=== PATIENT | male | born 1950 | race Caucasian/White ===

== ENCOUNTER 2021-03-08 11:26 | Observation (INO) | payer OTHER ==
[~2021-03-08] VITALS: Ht 175.3 cm; Wt 98.6 kg
[~2021-03-08 11:26] MED LIST: ALBU4 PO; ALBU90OI INH; ASCORBIC ACID PO; ATEN25 PO; ATOR20 PO; CYAN500 PO; DOCU100 PO; FERSU220EL PO; Hytrin2 MG PO; LISI5 PO; MULTI-DAY PLUS1 EAC1; PANT40 PO; TIOT18 INH
[2021-03-08] MEDS ORDERED: AMLO5 (11:37)
[2021-03-08] MEDS ORDERED: ATEN50 PO (12:42)
[2021-03-08] MEDS ORDERED: ATORVASTATIN CA20 MG PO (12:42)
[2021-03-08] MEDS ORDERED: AMLODIPINE BESYL5 MG PO (12:42)
[2021-03-08] MEDS ORDERED: Hytrin2 MG PO (12:42)
[2021-03-08] MEDS ORDERED: ZESTRIL40 M1 PO (12:42)
[2021-03-08 12:48] LABS: BASOPHILS ABSOLUTE AUTO 0.02 K/mm3 (0.00-0.23); BASOPHILS PERCENT AUTO 0 % (0-2); EOSINOPHILS PERCENT AUTO 0 % (0-6); Hematocrit 44.2 % (37.0-53.0); Hemoglobin 14.6 g/dL (13.5-17.5); IMMATURE GRAN ABSOLUTE AUTO 0.03 K/mm3 (0.00-0.10); IMMATURE GRAN PERCENT AUTO 0 % (0-1); LYMPHOCYTES ABSOLUTE AUTO 0.81 K/mm3 (0.84-5.20); LYMPHOCYTES PERCENT AUTO 9 % (21-46); MONOCYTES ABSOLUTE AUTO 0.83 K/mm3 (0.16-1.47); MONOCYTES PERCENT AUTO 9 % (4-13); Mean Corpuscular Volume 91 fL (80-100); Mean Platelet Volume 10.8 fL (9.1-12.4); NEUTROPHILS ABSOLUTE AUTO 7.84 K/mm3 (1.96-9.15); NEUTROPHILS PERCENT AUTO 82 % (41-73); Platelet Count 177 K/mm3 (150-400); RDW Standard Deviation 47.1 fL (35.1-46.3); Red Blood Cell Count 4.87 M/mm3 (4.30-5.90); White Blood Cell Count 9.53 K/mm3 (4.00-11.30)
[2021-03-08 13:10] LABS: Alanine Aminotransfer (ALT/SGP 33 U/L (12-78); Albumin, Blood 3.5 g/dL (3.4-5.0); Albumin/Globulin Ratio 1.1 (0.8-1.8); Alk Phos 92 U/L (50-136); Anion Gap 5 mmol/L (6-16); Aspartate Aminotrans (AST/SGOT 19 U/L (12-37); Bilirubin, Total 0.7 mg/dL (0.1-1.0); Blood Urea Nitrogen 20 mg/dL (8-24); CO2, Blood 27 mmol/L (21-32); Chloride, Blood 109 mmol/L (98-108); Creatinine, Blood 1.25 mg/dL (0.60-1.20); Globulin, Blood 3.3 g/dL (2.2-4.0); Glomerular Filtration Rate >60 (60-); Glucose, Blood 121 mg/dL (70-99); Potassium, Blood 3.9 mmol/L (3.5-5.5); Sodium, Blood 141 mmol/L (136-145); Total Protein, Blood 6.8 g/dL (6.4-8.2)
[2021-03-08] MEDS ORDERED: ALBU90OI INH (15:51)
[2021-03-08] MEDS ORDERED: DOCU100 PO (15:53)
[2021-03-08] MEDS ORDERED: ASPI81CH PO (15:53)
[2021-03-08] MEDS ORDERED: PANT40 PO (15:53)
--- NOTE | 2021-03-08 18:20 | NUR ---
PT ADMITTED FROM ER, [facility].HE IS ALERT AND ORIENTED AND ABLE TO EXPRESS NEEDS. HE HAS BEEN AMBULATING AROUND HALLS . HAD EPISODE OF NAUSEA AND VOMITTED BUT EXPRESSED RELIEF SHORTLY AFTER. NO EPISODES SINCE. HE IS FRIENDLY AND COMPLIANT WITH CARES. CALL LIGHT WITHIN REACH.
--- NOTE | 2021-03-09 05:00 | NUR ---
SHIFT SUMMARY PT HAD AN UNEVENTFUL NIGHT. SLEPT THROUGH MOST OF THE NIGHT. NO COMPLAINTS OF ABD PAIN OR NAUSEA. PT TOOK SEVERAL WALKS AROUND THE HALLS. PT DENIES HAVING ANY BOWEL MOVEMENTS OR GAS THIS EVENING. PT REMAINED NPO. VITAL SIGNS STABLE. WILL CONTINUE TO MONITOR.
[2021-03-09 05:19] LABS: BASOPHILS ABSOLUTE AUTO 0.02 K/mm3 (0.00-0.23); BASOPHILS PERCENT AUTO 0 % (0-2); EOSINOPHILS ABSOLUTE AUTO 0.03 K/mm3 (0.00-0.68); EOSINOPHILS PERCENT AUTO 0 % (0-6); Hematocrit 40.8 % (37.0-53.0); Hemoglobin 13.4 g/dL (13.5-17.5); IMMATURE GRAN ABSOLUTE AUTO 0.02 K/mm3 (0.00-0.10); IMMATURE GRAN PERCENT AUTO 0 % (0-1); LYMPHOCYTES ABSOLUTE AUTO 1.01 K/mm3 (0.84-5.20); LYMPHOCYTES PERCENT AUTO 13 % (21-46); MONOCYTES ABSOLUTE AUTO 0.97 K/mm3 (0.16-1.47); MONOCYTES PERCENT AUTO 13 % (4-13); Mean Corpuscular HGB 30.2 pg (26.0-34.0); Mean Corpuscular HGB Conc 32.8 g/dL (31.5-36.5); Mean Corpuscular Volume 92 fL (80-100); Mean Platelet Volume 11.2 fL (9.1-12.4); NEUTROPHILS ABSOLUTE AUTO 5.67 K/mm3 (1.96-9.15); NEUTROPHILS PERCENT AUTO 73 % (41-73); Platelet Count 175 K/mm3 (150-400); RDW Coefficient Variation 14.3 % (11.7-14.2); RDW Standard Deviation 48.4 fL (35.1-46.3); Red Blood Cell Count 4.44 M/mm3 (4.30-5.90); White Blood Cell Count 7.72 K/mm3 (4.00-11.30)
[2021-03-09 05:51] LABS: Alanine Aminotransfer (ALT/SGP 25 U/L (12-78); Albumin, Blood 3.2 g/dL (3.4-5.0); Albumin/Globulin Ratio 1.1 (0.8-1.8); Alk Phos 78 U/L (50-136); Anion Gap 4 mmol/L (6-16); Aspartate Aminotrans (AST/SGOT 17 U/L (12-37); Bilirubin, Total 0.9 mg/dL (0.1-1.0); Blood Urea Nitrogen 22 mg/dL (8-24); CO2, Blood 27 mmol/L (21-32); Calcium, Blood 8.4 mg/dL (8.5-10.1); Chloride, Blood 112 mmol/L (98-108); Creatinine, Blood 1.22 mg/dL (0.60-1.20); Globulin, Blood 2.9 g/dL (2.2-4.0); Glomerular Filtration Rate >60 (60-); Glucose, Blood 126 mg/dL (70-99); Potassium, Blood 3.8 mmol/L (3.5-5.5); Sodium, Blood 143 mmol/L (136-145); Total Protein, Blood 6.1 g/dL (6.4-8.2)
--- NOTE | 2021-03-09 06:10 | NUR ---
PT HAD A LARGE LOOSE BROWN BM. STATED THAT HIS ABD FEELS BETTER AFTER BOWEL MOVEMENT.
--- NOTE | 2021-03-09 11:40 | NUR ---
PATIENT IS ALERT AND ORIENTED. HE HAS TOLERATED COFFEE AND ICE CHIPS THIS MONRING. HE BEEN PLACED ON A FULL LIQUID DIET. NO C/O N/V OR PAIN. PATIENT STATES HE HAS HAD 3 BM'S THIS SHIFT. WILL CONTINUE TO MONITOR
[2021-03-09] MEDS ORDERED: ONDA4ODT MM (14:39)
== END 2021-03-09 15:03 | disposition home or self-care (01) ==
LOC: ER 11:26 → MEDS 11:27
PROVIDERS: ADMIT Internal Medicine
DX: K56.609 Unspecified intestinal obstruction, unspecified as to partial versus complete obstruction (principal); J44.9 Chronic obstructive pulmonary disease, unspecified; I12.9 Hypertensive chronic kidney disease with stage 1 through stage 4 chronic kidney disease, or unspecified chronic kidney disease; N18.30 Chronic kidney disease, stage 3 unspecified; E78.5 Hyperlipidemia, unspecified; N28.89 Other specified disorders of kidney and ureter; Z85.038 Personal history of other malignant neoplasm of large intestine; Z87.891 Personal history of nicotine dependence; Z79.82 Long term (current) use of aspirin; Z85.72 Personal history of non-Hodgkin lymphomas
CPT/HCPCS: 36415; 80053; 83605; 85025; 96372; 96374; 96375; 99285; G0378; J1644; J2405; J3010; J7042